=== PATIENT | female | born 1950 | race Asian ===

== ENCOUNTER 2017-01-11 18:19 | Emergency (ER) | payer OTHER ==
[~2017-01-11] VITALS: Ht 162.6 cm; Wt 56.7 kg
--- NOTE | 2017-01-11 18:19 | NUR ---
Patient was BIBA at this time.
[2017-01-11 18:22] VITALS: BP 163/90
[2017-01-11] MEDS ORDERED: CELE200C PO (18:28)
[2017-01-11] MEDS ORDERED: AMLO5TAB PO (18:28)
[2017-01-11] MEDS ORDERED: HYDR-4446 PO (18:28)
[2017-01-11] MEDS ORDERED: MECL-272 PO (18:28)
--- NOTE | 2017-01-11 19:30 | NUR ---
Patient was taken to bed 06 via gurney per EMS.
--- NOTE | 2017-01-11 19:32 | NUR ---
MARIA INES IS AT BEDSIDE ( DAUGHTER IN LAW)
--- NOTE | 2017-01-11 19:32 | NUR ---
66Y F BIBA C/O DIZZINESS AND VOMITNG SINCE 1729 TODAY WHILE AT HOME. PT STATES SHE HAD BACK SX 2 MONTHS AGO FOR SPINAL FUSION AND HAS BEEN TAKING CELEBREX, NORCO, MECLIZINE, AND NORVASC FOR SYPMTOMS RELATED TO PAIN. PT STATES SHE DOES NOT HAVE HTN, BUT D/T PAIN HER BP GET EXTREMELTY ELEVATED SO HER MD ORDERED NORVASC FOR ELEVATED BP DURING EPISODES OF PAIN. EMS ESTABLISHED IV ON FIELD 20G RIGHT AC; EMS PROVIDED ZOFRAN ODT 4MG PO; NOT EFFECTIVE SO THEY GAVE ANOTHER ROUND IV ZOFRAN 4MG; SKIN IS PINK/WARM/DRY; AAOX4 WITH EVEN AND STEADY GAIT; LUNGS CLEAR BL; HR EVEN AND REGULAR; PT DENIES ANY FEVER, CP, SOB, OR COUGH AT THIS TIME; PATIENT STATES PAIN OF 5/10 AT THIS TIME; VSS; PATIENT POSITIONED FOR COMFORT; HOB ELEVATED; BEDRAILS UP X2; BED DOWN. ER MD MADE AWARE OF PT STATUS.
--- NOTE | 2017-01-11 20:00 | NUR ---
Patient being evaluated by physician DR CORONADO at bedside.
[2017-01-11 20:34] LABS: HEMATOCRIT 41.3 % (36-48); HEMOGLOBIN 13.6 g/dL (12.0-16.0); MEAN CORPUSCULAR HEMOGLOBIN 28 pg (27-31); MEAN CORPUSCULAR HGB CONC 33 g/dL (33-37); MEAN CORPUSCULAR VOLUME 86 fL (80-94); PLATELET COUNT (AUTO) 348 K/uL (140-450); RED BLOOD CELL COUNT(AUTO) 4.79 MIL/uL (4.20-5.40); RED CELL DISTRIBUTION WIDTH 12.6 % (11.6-13.7); WHITE BLOOD COUNT (AUTO) 21.2 K/uL (4.8-10.8)
[2017-01-11 20:50] LABS: ALBUMIN 4.2 g/dL (3.4-5.0); BAND % (MANUAL) 16 % (0-8); CALCIUM 9.2 mg/dL (8.5-10.1); CARBON DIOXIDE 24.6 mmol/L (21-32); CREATININE 1.1 mg/dL (0.6-1.3); EOSINOPHILS % (MANUAL) 1 % (0-4); LYMPHOCYTES % (MANUAL) 4 % (20-46); MONOCYTES % (MANUAL) 5 % (5-12); NEUTROPHILS % (MANUAL) 74 (43-65); PLATELET ESTIMATE ADEQUATE; POTASSIUM 3.6 mmol/L (3.5-5.1); TOTAL BILIRUBIN 0.6 mg/dL (0.0-1.0); TOTAL PROTEIN, SERUM 7.8 g/dL (6.4-8.2)
[2017-01-11 21:44] LABS: APPEARANCE,URINE SL CLOUDY (CLEAR); BILIRUBIN,URINE NEGATIVE (NEGATIVE); BLOOD, URINE TRACE-I (NEGATIVE); COLOR,URINE YELLOW (YELLOW); LEUKOCYTE ESTERASE ,URINE NEGATIVE (NEGATIVE); NITRITE, URINE NEGATIVE (NEGATIVE); PROTEIN,URINE NEGATIVE (NEGATIVE); UGLUCOSE NEGATIVE (NEGATIVE); UROBILINOGEN,URINE 0.2 EU/dL (0.2 - 1)
[2017-01-11 21:49] LABS: BACTERIA,URINE RARE /HPF (None Seen); RBC,URINE 0-3 /HPF (0-5); SQUAMOUS EPITHELIAL CELL,UR 0-3 /LPF (0-3 (FEW)); URINE AMORPHOUS PHOSPHATES 2+ /HPF (None Seen); WBC,URINE 0-3 /HPF (0-5)
--- NOTE | 2017-01-11 23:00 | NUR ---
Patient back from CT via [facility].
--- NOTE | 2017-01-12 00:30 | NUR ---
IV removed, catheter intact and site benign. Applied folded 4x4 gauze and tape to stop bleeding.
[2017-01-12 00:33] VITALS: BP 141/89
--- NOTE | 2017-01-12 00:33 | NUR ---
DISCHARGE NOTE ONLY : Patient discharged with v/s stable BY ER MD DR CORONADO . Written and verbal after care instructions given and explained BY ER MD DR CORONADO. Patient alert, oriented and verbalized understanding of instructions BY ER MD DR CORONADO. Ambulatory with steady gait. All questions addressed prior to discharge BY ER MD DR CORONADO. ID band removed. Patient advised to follow up with PMD. Rx of ZOFRAN 8MG given. Patient educated on indication of medication including possible reaction and side effects. Opportunity to ask questions provided and answered BY ER MD DR CORONADO.
== END 2017-01-12 00:33 | disposition home or self-care (01) ==
LOC: MED 18:19
DX: A08.11 Acute gastroenteropathy due to Norwalk agent (principal)
CPT/HCPCS: 36415; 71010; 72131; 80053; 81001; 84484; 85025; 99285; Q0092